=== PATIENT | female | born 1960 | race Caucasian/White ===

== ENCOUNTER 2016-08-08 16:23 | Emergency (ER) | payer MEDICAID ==
[~2016-08-08] VITALS: Ht 149.9 cm; Wt 63.5 kg
[~2016-08-08 16:23] MED LIST: DOC100C PO; Insulin Detemir SC; LEV500T PO; LIS5T PO; MET25T PO; Pantoprazole Sodium Sesquihydr PO; SACC250C PO
[2016-08-08] MEDS ORDERED: SODIUM CHLORIDE 0.9% 1,000 ML IV ONE (23:33)
[2016-08-08] MEDS ORDERED: ONDANSETRON HCL 4 MG/2 ML VIAL IV ONE (23:45)
[2016-08-08] MEDS ORDERED: MORPHINE SULFATE 4 MG/ML SYRG IV ONE (23:45)
[2016-08-09 00:01] LABS: Basophils # (auto) 0.1 uL; Basophils % (auto) 0.4 % (0.0-2.0); Eosinophils # (auto) 0 uL; Eosinophils % (auto) 0.1 % (0.0-7.0); Hematocrit 38.6 % (36.0-46.0); Hemoglobin 12.5 g/dL (12.2-16.2); Lymphocytes # (auto) 1.8 uL; Mean Corpuscular Hemoglobin 27.9 pg (28.0-32.0); Mean Corpuscular Hgb Conc. 32.3 g/dL (32.0-36.0); Mean Corpuscular Volume 86.4 fL (80.0-100.0); Mean Platelet Volume 8.8 fL (7.4-10.4); Monocytes # (auto) 1.2 uL; Monocytes % (auto) 7.3 % (0.0-12.0); Neutrophils # (auto) 13.1 uL; Neutrophils % (auto) 81.2 % (37.0-80.0); Platelet Count (auto) 451 10^3/uL (140-450); Red Cell Distribution Width 13.3 % (11.6-16.0); White Blood Cell 16.1 10^3/uL (4.4-10.8)
[2016-08-09 00:19] LABS: Albumin 2.1 g/dL (3.4-5.0); BUN/Creatinine Ratio 29.3; Calcium 8.2 mg/dL (8.5-10.1)
[2016-08-09 00:21] LABS: Bilirubin, Total 0.2 mg/dL (0.2-1.0); Total Protein 6.9 g/dL (6.4-8.2)
[2016-08-09 00:24] LABS: Potassium 2.8 mmol/L (3.5-5.1)
[2016-08-09] MEDS ORDERED: POTASSIUM CHL 20 Meq TABLET PO ONE (00:45)
[2016-08-09] MEDS ORDERED: ONDANSETRON HCL 4 MG/2 ML VIAL ONE (02:16)
[2016-08-09] MEDS ORDERED: ONDANSETRON HCL 4 MG/2 ML VIAL IV ONE (02:30)
[2016-08-09] MEDS ORDERED: InsuLIN REG 1unit/0.01ml Soln (100units/ml) SC ONE (02:30)
[2016-08-09] MEDS ORDERED: cefTRIAXone 1GM/50ML D5W 50 ML IV ONE (04:45)
[2016-08-09] MEDS ORDERED: metroNIDAZOLE 500MG/100ML 100 ML IV ONE (04:45)
[2016-08-09 05:40] LABS: Urine Bilirubin Negative (Negative); Urine Blood TRACE /uL (Negative); Urine Color Yellow (Yellow); Urine Hyaline Cast FEW /lpf (0 - 2); Urine Nitrite Negative (Negative); Urine RBC 13 /hpf (0 - 4); Urine Squamous Epithelial Cell FEW /hpf (<5); Urine Urobilinogen Normal (Negative); Urine pH 6.5 (5.0-8.0)
[2016-08-09 05:54] LABS: Urine Glucose 4+ mg/dL (Normal); Urine Ketone 3+ (Negative)
[2016-08-09 09:21] VITALS: BP 134/75
== END 2016-08-09 10:22 | disposition home or self-care (01) ==
LOC: EDBD 16:23 → ER 16:34
DX: N20.0 Calculus of kidney (principal); E11.9 Type 2 diabetes mellitus without complications; E87.6 Hypokalemia; D72.829 Elevated white blood cell count, unspecified; N18.9 Chronic kidney disease, unspecified; F17.210 Nicotine dependence, cigarettes, uncomplicated; Z86.73 Personal history of transient ischemic attack (TIA), and cerebral infarction without residual deficits; Z88.0 Allergy status to penicillin
CPT/HCPCS: 36415; 71010; 74176; 80053; 81001; 83605; 83690; 85025; 96361; 96365; 96366; 96368; 96375; 99285; G0434; J0696; J2270; J2405; J3490

== ENCOUNTER 2016-08-26 12:41 | Inpatient (IN) | payer MEDICAID ==
[~2016-08-26] VITALS: Ht 149.9 cm; Wt 52.6 kg
[2016-08-26] MEDS ORDERED: SODIUM CHLORIDE 0.9% 250 ML IV ONE (13:26)
[2016-08-26] MEDS ORDERED: SODIUM CHLORIDE 0.9% 1,000 ML IV ONE ×2 (13:26→14:54)
[2016-08-26] MEDS ORDERED: PROMETHAZINE HCL 25 MG/ML 1ML IV ONE (13:30)
[2016-08-26] MEDS ORDERED: MORPHINE SULFATE 4 MG/ML SYRG IV ONE (13:30)
[2016-08-26 13:58] LABS: Albumin 3.2 g/dL (3.4-5.0); BUN/Creatinine Ratio 21.2; Calcium 8.9 mg/dL (8.5-10.1)
[2016-08-26 14:00] LABS: Bilirubin, Total 0.4 mg/dL (0.2-1.0); Total Protein 7.6 g/dL (6.4-8.2)
[2016-08-26 14:28] LABS: Basophils # (auto) 0 uL; Basophils % (auto) 0.2 % (0.0-2.0); Eosinophils # (auto) 0 uL; Hematocrit 47.3 % (36.0-46.0); Hemoglobin 15.1 g/dL (12.2-16.2); Lymphocytes # (auto) 0.9 uL; Lymphocytes % (auto) 5.2 % (10.0-50.0); Mean Corpuscular Hgb Conc. 31.9 g/dL (32.0-36.0); Mean Corpuscular Volume 87.9 fL (80.0-100.0); Mean Platelet Volume 9.7 fL (7.4-10.4); Monocytes # (auto) 0.2 uL; Monocytes % (auto) 1.3 % (0.0-12.0); Neutrophils # (auto) 15.6 uL; Neutrophils % (auto) 93.3 % (37.0-80.0); Platelet Count (auto) 350 10^3/uL (140-450); Red Cell Distribution Width 14.5 % (11.6-16.0); White Blood Cell 16.7 10^3/uL (4.4-10.8)
[2016-08-26] MEDS ORDERED: VANCOMYCIN 1GM/250ML D5W 250 ML IV ONE (15:00)
[2016-08-26] MEDS ORDERED: InsuLIN REG 1unit/0.01ml Soln (100units/ml) IV ONE (15:00)
[2016-08-26] MEDS ORDERED: HYDROcodone-ACET 5/325MG TAB PO PRN (15:15)
[2016-08-26] MEDS ORDERED: PANTOPRAZOLE SODIUM 40 MG/10 ML VIAL IV ONE (15:15)
[2016-08-26] MEDS ORDERED: LISINOPRIL 10 MG TAB PO ONE (15:15)
[2016-08-26] MEDS ORDERED: DEXTROSE (50%) 50ML SYRG IV PRN (15:15)
[2016-08-26] MEDS: SODIUM CHLORIDE 0.9% 1,000 ML IV SCH (15:15)
[2016-08-26 15:37] LABS: Urine Bilirubin Negative (Negative); Urine Blood Negative /uL (Negative); Urine Color Yellow (Yellow); Urine Nitrite Negative (Negative); Urine RBC 3 /hpf (0 - 4); Urine Squamous Epithelial Cell FEW /hpf (<5); Urine Urobilinogen Normal (Negative); Urine pH 7.5 (5.0-8.0)
[2016-08-26 15:40] LABS: Urine Glucose 4+ mg/dL (Normal); Urine Ketone 2+ (Negative)
[2016-08-26] MEDS: ACCU-CHEK COMFORT CURVE STRIP VI SCH (17:46)
[2016-08-26] MEDS: InsuLIN REG 1unit/0.01ml Soln (100units/ml) SC SCH ×2 (17:48→23:50)
[2016-08-26] MEDS: ONDANSETRON HCL 4 MG/2 ML VIAL IV PRN (18:56)
[2016-08-26 20:00] VITALS: BP 109/65
[2016-08-26 21:41] VITALS: BP 109/65
[2016-08-27] VITALS (7 sets, daily range): BP systolic 144–184; BP diastolic 76–97
[2016-08-27] MEDS: SODIUM CHLORIDE 0.9% 1,000 ML IV SCH ×3 (00:02→21:15)
[2016-08-27] MEDS: ACCU-CHEK COMFORT CURVE STRIP VI SCH ×4 (00:02→18:03)
[2016-08-27] MEDS: ONDANSETRON HCL 4 MG/2 ML VIAL IV PRN ×2 (05:04→09:30)
[2016-08-27] MEDS: InsuLIN REG 1unit/0.01ml Soln (100units/ml) SC SCH ×3 (05:18→17:59)
[2016-08-27 08:54] LABS: Basophils # (auto) 0.1 uL; Basophils % (auto) 0.4 % (0.0-2.0); Eosinophils # (auto) 0 uL; Hematocrit 41.8 % (36.0-46.0); Hemoglobin 13.2 g/dL (12.2-16.2); Lymphocytes # (auto) 1.9 uL; Lymphocytes % (auto) 10.6 % (10.0-50.0); Mean Corpuscular Hemoglobin 27.6 pg (28.0-32.0); Mean Corpuscular Hgb Conc. 31.6 g/dL (32.0-36.0); Mean Corpuscular Volume 87.4 fL (80.0-100.0); Mean Platelet Volume 8.8 fL (7.4-10.4); Monocytes # (auto) 0.8 uL; Monocytes % (auto) 4.3 % (0.0-12.0); Neutrophils # (auto) 14.9 uL; Neutrophils % (auto) 84.7 % (37.0-80.0); Platelet Count (auto) 335 10^3/uL (140-450); Red Cell Distribution Width 14.1 % (11.6-16.0); White Blood Cell 17.6 10^3/uL (4.4-10.8)
[2016-08-27 09:04] LABS: INR 0.95 (0.9-1.15); Partial Thromboplastin Time 26.3 sec (22.64-33.71); Prothrombin Time 9.8 sec (9.37-12.3)
[2016-08-27 09:20] LABS: Albumin 2.5 g/dL (3.4-5.0); BUN/Creatinine Ratio 26.9; Bilirubin, Total 0.3 mg/dL (0.2-1.0); Calcium 8.4 mg/dL (8.5-10.1); Potassium 4.1 mmol/L (3.5-5.1); Total Protein 6.3 g/dL (6.4-8.2)
[2016-08-27] MEDS: LISINOPRIL 10 MG TAB PO SCH (09:30)
[2016-08-27] MEDS: PANTOPRAZOLE SODIUM 40 MG/10 ML VIAL IV SCH (09:30)
[2016-08-27] MEDS: MORPHINE SULF INJ 2 MG/ML SYRINGE 1ML IV PRN ×3 (11:25→20:49)
[2016-08-27] MEDS: PROMETHAZINE HCL 25 MG/ML 1ML IV PRN ×3 (11:25→20:48)
[2016-08-27] MEDS ORDERED: LEVOFLOXACIN 500MG 100 ML IV ONE (14:15)
[2016-08-27] MEDS: Boost Glucose Control 8 Ounces PO SCH ×2 (17:57→21:58)
[2016-08-28] VITALS (7 sets, daily range): BP systolic 125–178; BP diastolic 64–112
[2016-08-28] MEDS: ACCU-CHEK COMFORT CURVE STRIP VI SCH ×4 (00:18→17:25)
[2016-08-28] MEDS: InsuLIN REG 1unit/0.01ml Soln (100units/ml) SC SCH ×4 (00:22→17:25)
[2016-08-28] MEDS: PROMETHAZINE HCL 25 MG/ML 1ML IV PRN ×4 (00:38→22:32)
[2016-08-28] MEDS: MORPHINE SULF INJ 2 MG/ML SYRINGE 1ML IV PRN ×5 (00:38→22:40)
[2016-08-28] MEDS: SODIUM CHLORIDE 0.9% 1,000 ML IV SCH ×2 (00:54→16:56)
[2016-08-28] MEDS: Boost Glucose Control 8 Ounces PO SCH ×4 (05:16→22:00)
[2016-08-28] MEDS: LEVOFLOXACIN 500MG 100 ML IV SCH (09:53)
[2016-08-28] MEDS: PANTOPRAZOLE SODIUM 40 MG/10 ML VIAL IV SCH (09:55)
[2016-08-28] MEDS: LISINOPRIL 10 MG TAB PO SCH (09:56)
[2016-08-28] MEDS ORDERED: VANCOMYCIN PER PHARMACY 0 MG IV SCH (11:00)
[2016-08-28] MEDS: VANCOMYCIN 1GM/250ML D5W 250 ML IV SCH (12:47)
[2016-08-28] MEDS: ONDANSETRON HCL 4 MG/2 ML VIAL IV PRN (17:19)
[2016-08-29] VITALS (8 sets, daily range): BP systolic 114–160; BP diastolic 82–106
[2016-08-29] MEDS: InsuLIN REG 1unit/0.01ml Soln (100units/ml) SC SCH ×5 (00:59→23:52)
[2016-08-29] MEDS: SODIUM CHLORIDE 0.9% 1,000 ML IV SCH ×3 (03:15→23:15)
[2016-08-29] MEDS: ONDANSETRON HCL 4 MG/2 ML VIAL IV PRN ×4 (04:02→23:15)
[2016-08-29] MEDS: MORPHINE SULF INJ 2 MG/ML SYRINGE 1ML IV PRN ×5 (04:02→23:15)
[2016-08-29] MEDS: Boost Glucose Control 8 Ounces PO SCH ×4 (06:00→21:41)
[2016-08-29] MEDS: ACCU-CHEK COMFORT CURVE STRIP VI SCH ×5 (06:09→23:52)
[2016-08-29 06:36] LABS: Basophils # (auto) 0 uL; Basophils % (auto) 0.6 % (0.0-2.0); Eosinophils # (auto) 0 uL; Eosinophils % (auto) 0.4 % (0.0-7.0); Hematocrit 40.8 % (36.0-46.0); Hemoglobin 12.9 g/dL (12.2-16.2); Lymphocytes # (auto) 1.6 uL; Lymphocytes % (auto) 24.1 % (10.0-50.0); Mean Corpuscular Hemoglobin 27.5 pg (28.0-32.0); Mean Corpuscular Hgb Conc. 31.6 g/dL (32.0-36.0); Mean Corpuscular Volume 87.2 fL (80.0-100.0); Mean Platelet Volume 8.9 fL (7.4-10.4); Monocytes # (auto) 0.7 uL; Monocytes % (auto) 10.4 % (0.0-12.0); Neutrophils # (auto) 4.4 uL; Neutrophils % (auto) 64.5 % (37.0-80.0); Platelet Count (auto) 247 10^3/uL (140-450); Red Cell Distribution Width 14.1 % (11.6-16.0); White Blood Cell 6.8 10^3/uL (4.4-10.8)
[2016-08-29 06:46] LABS: INR 0.96 (0.9-1.15); Prothrombin Time 9.9 sec (9.37-12.3)
[2016-08-29 06:50] LABS: BUN/Creatinine Ratio 17.8; Calcium 8.2 mg/dL (8.5-10.1); Magnesium 1.9 mg/dL (1.6-2.6); Potassium 3.4 mmol/L (3.5-5.1)
[2016-08-29] MEDS: PROMETHAZINE HCL 25 MG/ML 1ML IV PRN ×2 (08:18→13:37)
[2016-08-29] MEDS: LISINOPRIL 10 MG TAB PO SCH (10:48)
[2016-08-29] MEDS: LEVOFLOXACIN 500MG 100 ML IV SCH (10:49)
[2016-08-29] MEDS: PANTOPRAZOLE SODIUM 40 MG/10 ML VIAL IV SCH (10:49)
[2016-08-29] MEDS: VANCOMYCIN 1GM/250ML D5W 250 ML IV SCH (13:37)
[2016-08-30] VITALS (7 sets, daily range): BP systolic 126–176; BP diastolic 64–99
[2016-08-30] MEDS: Boost Glucose Control 8 Ounces PO SCH ×4 (05:51→22:00)
[2016-08-30] MEDS: ACCU-CHEK COMFORT CURVE STRIP VI SCH ×4 (05:51→23:45)
[2016-08-30] MEDS: InsuLIN REG 1unit/0.01ml Soln (100units/ml) SC SCH ×4 (05:52→23:43)
[2016-08-30 06:07] LABS: Basophils # (auto) 0 uL; Basophils % (auto) 0.5 % (0.0-2.0); Eosinophils # (auto) 0.1 uL; Eosinophils % (auto) 1.2 % (0.0-7.0); Hematocrit 38.5 % (36.0-46.0); Hemoglobin 12.1 g/dL (12.2-16.2); Lymphocytes # (auto) 1.8 uL; Lymphocytes % (auto) 31.1 % (10.0-50.0); Mean Corpuscular Hemoglobin 27.6 pg (28.0-32.0); Mean Corpuscular Hgb Conc. 31.4 g/dL (32.0-36.0); Mean Corpuscular Volume 87.9 fL (80.0-100.0); Mean Platelet Volume 9.2 fL (7.4-10.4); Monocytes # (auto) 0.8 uL; Monocytes % (auto) 13.3 % (0.0-12.0); Neutrophils # (auto) 3.2 uL; Neutrophils % (auto) 53.9 % (37.0-80.0); Platelet Count (auto) 207 10^3/uL (140-450); Red Cell Distribution Width 13.9 % (11.6-16.0); White Blood Cell 5.9 10^3/uL (4.4-10.8)
[2016-08-30 06:20] LABS: INR 1.03 (0.9-1.15); Prothrombin Time 10.6 sec (9.37-12.3)
[2016-08-30 06:28] LABS: BUN/Creatinine Ratio 18.4; Calcium 7.8 mg/dL (8.5-10.1); Magnesium 1.8 mg/dL (1.6-2.6)
[2016-08-30 06:37] LABS: Potassium 2.9 mmol/L (3.5-5.1)
[2016-08-30] MEDS: ONDANSETRON HCL 4 MG/2 ML VIAL IV PRN ×2 (08:40→15:32)
[2016-08-30] MEDS: MORPHINE SULF INJ 2 MG/ML SYRINGE 1ML IV PRN ×3 (08:41→20:25)
[2016-08-30] MEDS: SODIUM CHLORIDE 0.9% 1,000 ML IV SCH ×2 (09:15→12:15)
[2016-08-30] MEDS: PANTOPRAZOLE SODIUM 40 MG/10 ML VIAL IV SCH (10:07)
[2016-08-30] MEDS: LEVOFLOXACIN 500MG 100 ML IV SCH (10:07)
[2016-08-30] MEDS ORDERED: POTASSIUM CHL 20 Meq TABLET PO ONE ×2 (10:30→15:30)
[2016-08-30] MEDS: LISINOPRIL 10 MG TAB PO SCH (10:31)
[2016-08-30] MEDS: PROMETHAZINE HCL 25 MG/ML 1ML IV PRN ×2 (10:31→20:17)
[2016-08-30] MEDS ORDERED: MAGNESIUM SULFATE 1GM/100ML 100 ML IV ONE (12:15)
[2016-08-30] MEDS ORDERED: LISINOPRIL 10 MG TAB PO ONE (12:30)
[2016-08-30] MEDS: ENALAPRILAT 1.25 MG/ML-1ML VIAL IV PRN (16:45)
[2016-08-31] VITALS (7 sets, daily range): BP systolic 135–152; BP diastolic 60–98
[2016-08-31] MEDS: ENALAPRILAT 1.25 MG/ML-1ML VIAL IV PRN (04:32)
[2016-08-31] MEDS: ONDANSETRON HCL 4 MG/2 ML VIAL IV PRN ×3 (04:33→18:09)
[2016-08-31] MEDS: MORPHINE SULF INJ 2 MG/ML SYRINGE 1ML IV PRN ×5 (04:33→22:36)
[2016-08-31] MEDS: Boost Glucose Control 8 Ounces PO SCH ×4 (06:00→22:00)
[2016-08-31] MEDS: InsuLIN REG 1unit/0.01ml Soln (100units/ml) SC SCH ×3 (06:00→18:03)
[2016-08-31] MEDS: ACCU-CHEK COMFORT CURVE STRIP VI SCH ×3 (06:00→18:01)
[2016-08-31 06:19] LABS: Basophils # (auto) 0 uL; Basophils % (auto) 0.6 % (0.0-2.0); Eosinophils # (auto) 0.1 uL; Eosinophils % (auto) 0.9 % (0.0-7.0); Hematocrit 43.3 % (36.0-46.0); Hemoglobin 13.9 g/dL (12.2-16.2); Lymphocytes # (auto) 1.3 uL; Mean Corpuscular Hemoglobin 27.9 pg (28.0-32.0); Mean Corpuscular Hgb Conc. 32.1 g/dL (32.0-36.0); Mean Platelet Volume 9.4 fL (7.4-10.4); Monocytes # (auto) 0.8 uL; Monocytes % (auto) 13.2 % (0.0-12.0); Neutrophils # (auto) 3.7 uL; Neutrophils % (auto) 63.3 % (37.0-80.0); Platelet Count (auto) 233 10^3/uL (140-450); Red Cell Distribution Width 13.8 % (11.6-16.0); White Blood Cell 5.8 10^3/uL (4.4-10.8)
[2016-08-31 06:57] LABS: BUN/Creatinine Ratio 20.5; Calcium 8.2 mg/dL (8.5-10.1); Potassium 4.2 mmol/L (3.5-5.1)
[2016-08-31] MEDS: PROMETHAZINE HCL 25 MG/ML 1ML IV PRN (07:53)
[2016-08-31] MEDS: SODIUM CHLORIDE 0.9% 1,000 ML IV SCH (07:59)
[2016-08-31] MEDS: LISINOPRIL 20 MG TAB PO SCH (09:20)
[2016-08-31] MEDS: PANTOPRAZOLE SODIUM 40 MG/10 ML VIAL IV SCH (09:20)
[2016-08-31] MEDS: LACTULOSE 20Gm/30ML SOLN PO PRN ×2 (09:27→18:20)
[2016-08-31] MEDS: DOCUSATE SOD 100 MG CAP PO SCH ×2 (09:34→22:00)
[2016-08-31] MEDS: METOCLOPRAMIDE HCL 5MG/ml INJ 2ml VIAL IV SCH ×2 (14:03→22:21)
[2016-09-01] MEDS: InsuLIN REG 1unit/0.01ml Soln (100units/ml) SC SCH ×5 (00:58→23:59)
[2016-09-01] MEDS: SODIUM CHLORIDE 0.9% 1,000 ML IV SCH (04:15)
[2016-09-01 05:00] VITALS: BP 112/65
[2016-09-01] MEDS: METOCLOPRAMIDE HCL 5MG/ml INJ 2ml VIAL IV SCH ×3 (05:56→23:53)
[2016-09-01] MEDS: Boost Glucose Control 8 Ounces PO SCH ×4 (05:58→22:00)
[2016-09-01] MEDS: ACCU-CHEK COMFORT CURVE STRIP VI SCH ×5 (06:25→23:53)
[2016-09-01 07:50] VITALS: BP 110/56
[2016-09-01 09:12] VITALS: BP 110/56
[2016-09-01] MEDS: DOCUSATE SOD 100 MG CAP PO SCH ×2 (10:00→22:00)
[2016-09-01] MEDS: PANTOPRAZOLE SODIUM 40 MG/10 ML VIAL IV SCH (10:53)
[2016-09-01] MEDS: LISINOPRIL 20 MG TAB PO SCH (10:53)
[2016-09-01] MEDS: MORPHINE SULF INJ 2 MG/ML SYRINGE 1ML IV PRN ×3 (10:55→20:57)
[2016-09-01 12:00] VITALS: BP 112/60
[2016-09-01 17:00] VITALS: BP 145/95
[2016-09-01] MEDS: metFORMIN HYDROCHLORIDE 500 MG TAB PO SCH (18:26)
[2016-09-01] MEDS: ONDANSETRON HCL 4 MG/2 ML VIAL IV PRN (20:03)
[2016-09-01 22:00] VITALS: BP 137/71
[2016-09-02 05:00] VITALS: BP 107/62
[2016-09-02] MEDS: InsuLIN REG 1unit/0.01ml Soln (100units/ml) SC SCH (05:37)
[2016-09-02] MEDS: ACCU-CHEK COMFORT CURVE STRIP VI SCH (05:37)
[2016-09-02] MEDS: METOCLOPRAMIDE HCL 5MG/ml INJ 2ml VIAL IV SCH ×2 (05:37→11:27)
[2016-09-02] MEDS: Boost Glucose Control 8 Ounces PO SCH (05:37)
[2016-09-02] MEDS: MORPHINE SULF INJ 2 MG/ML SYRINGE 1ML IV PRN (05:38)
[2016-09-02] MEDS: metFORMIN HYDROCHLORIDE 500 MG TAB PO SCH (06:35)
[2016-09-02 07:10] LABS: BUN/Creatinine Ratio 19.6; Calcium 7.9 mg/dL (8.5-10.1); Potassium 3.5 mmol/L (3.5-5.1)
[2016-09-02 07:45] VITALS: BP 152/86
[2016-09-02 09:00] VITALS: BP 142/75
[2016-09-02] MEDS: DOCUSATE SOD 100 MG CAP PO SCH (10:00)
[2016-09-02] MEDS: PANTOPRAZOLE SODIUM 40 MG/10 ML VIAL IV SCH (10:04)
[2016-09-02] MEDS: LISINOPRIL 20 MG TAB PO SCH (10:05)
[2016-09-02] MEDS ORDERED: METF500T PO (10:19)
[2016-09-02] MEDS ORDERED: METO-281 PO (10:19)
[2016-09-02] MEDS ORDERED: LISI-646 PO (10:19)
[2016-09-02] MEDS ORDERED: PANT40TA2 PO (11:44)
[2016-09-02 12:00] VITALS: BP 127/67
== END 2016-09-02 13:00 | disposition home health service (06) | DRG 48 ==
LOC: EDUNIT# 12:41 → ER 12:44 → OVERFLOW 12:45 → EAST 16:41 → CENTRAL 17:22
PROVIDERS: ADMIT Internal Medicine; ATTEND Internal Medicine
DX: E11.43 Type 2 diabetes mellitus with diabetic autonomic (poly)neuropathy (principal); E43 Unspecified severe protein-calorie malnutrition; I31.3 Pericardial effusion (noninflammatory); R65.10 Systemic inflammatory response syndrome (SIRS) of non-infectious origin without acute organ dysfunction; N39.0 Urinary tract infection, site not specified; E11.65 Type 2 diabetes mellitus with hyperglycemia; E86.0 Dehydration; K31.84 Gastroparesis; N81.10 Cystocele, unspecified; E87.6 Hypokalemia; N20.0 Calculus of kidney; I10 Essential (primary) hypertension; F17.210 Nicotine dependence, cigarettes, uncomplicated; D72.825 Bandemia; N32.89 Other specified disorders of bladder; I70.8 Atherosclerosis of other arteries; R32 Unspecified urinary incontinence; K44.9 Diaphragmatic hernia without obstruction or gangrene; Z87.442 Personal history of urinary calculi; Z86.73 Personal history of transient ischemic attack (TIA), and cerebral infarction without residual deficits; Z88.0 Allergy status to penicillin; Z91.14 Patient's other noncompliance with medication regimen; Z98.890 Other specified postprocedural states
CPT/HCPCS: 36415; 71010; 74176; 80048; 80053; 80061; 81001; 82962; 83036; 83605; 83690; 83735; 84132; 85025; 85610; 85730; 87040; 87086; 93005; 94761; 96361; 96365; 96375; C9113; J1815; J1956; J2405

== ENCOUNTER 2016-09-27 05:23 | Inpatient (IN) | payer MEDICAID ==
[~2016-09-27] VITALS: Ht 149.9 cm; Wt 58.2 kg
[~2016-09-27 05:23] MED LIST changes: -DOC100C PO; -Insulin Detemir SC; -LEV500T PO; -LIS5T PO; +LISI-646 PO; -MET25T PO; +METF500T PO; +METO-281 PO; +PANT40TA2 PO; -Pantoprazole Sodium Sesquihydr PO; -SACC250C PO; +SODIUM BICARBONATE 8.4% INJ 50ML SYRINGE IV ONE
[2016-09-27] MEDS ORDERED: SODIUM CHLORIDE 0.9% 1,000 ML IV ONE (07:51)
[2016-09-27 07:54] LABS: Basophils # (auto) 0.1 uL; Basophils % (auto) 0.7 % (0.0-2.0); Eosinophils # (auto) 0.2 uL; Eosinophils % (auto) 2.4 % (0.0-7.0); Hematocrit 35.9 % (36.0-46.0); Hemoglobin 11.8 g/dL (12.2-16.2); Lymphocytes # (auto) 1.5 uL; Mean Corpuscular Hemoglobin 28.6 pg (28.0-32.0); Mean Corpuscular Hgb Conc. 32.7 g/dL (32.0-36.0); Mean Corpuscular Volume 87.4 fL (80.0-100.0); Mean Platelet Volume 8.9 fL (7.4-10.4); Monocytes # (auto) 0.7 uL; Monocytes % (auto) 8.9 % (0.0-12.0); Neutrophils # (auto) 5.4 uL; Platelet Count (auto) 360 10^3/uL (140-450); Red Cell Distribution Width 14.8 % (11.6-16.0); White Blood Cell 7.9 10^3/uL (4.4-10.8)
[2016-09-27 08:18] LABS: Albumin 2.9 g/dL (3.4-5.0); Bilirubin, Total 0.2 mg/dL (0.2-1.0); Calcium 8.7 mg/dL (8.5-10.1); Potassium 3.9 mmol/L (3.5-5.1); Total Protein 6.8 g/dL (6.4-8.2)
[2016-09-27 08:30] LABS: Magnesium 1.9 mg/dL (1.6-2.6)
[2016-09-27 09:56] LABS: Urine RBC None Seen /hpf (0 - 4)
[2016-09-27 10:12] LABS: Urine Bilirubin Negative (Negative); Urine Blood Negative /uL (Negative); Urine Color Yellow (Yellow); Urine Glucose 4+ mg/dL (Normal); Urine Ketone Negative (Negative); Urine Nitrite Negative (Negative); Urine Squamous Epithelial Cell FEW /hpf (<5); Urine Urobilinogen Normal (Negative)
[2016-09-27] MEDS ORDERED: cefTRIAXone 1GM/50ML D5W 50 ML IV ONE (13:00)
[2016-09-27] MEDS ORDERED: DEXTROSE (50%) 50ML SYRG IV PRN (14:00)
[2016-09-27] MEDS ORDERED: ACETAMINOPHEN 500 MG TAB PO PRN (14:00)
[2016-09-27] MEDS ORDERED: MORPHINE SULF INJ 2 MG/ML SYRINGE 1ML IV PRN (14:00)
[2016-09-27] MEDS ORDERED: ASPirin 81 mg TAB PO ONE (14:00)
[2016-09-27] MEDS: SODIUM CHLORIDE 0.9% 1,000 ML IV SCH (14:00)
[2016-09-27] MEDS ORDERED: TEMAZEPAM 15 MG CAP PO PRN (14:00)
[2016-09-27] MEDS ORDERED: NITROGLYCERIN 0.4 MG SL TAB SL PRN (14:00)
[2016-09-27] MEDS ORDERED: LACTULOSE 20Gm/30ML SOLN PO PRN (14:00)
[2016-09-27] MEDS: ENOXAPARIN SOD 40 MG/0.4 ML SYRINGE SC SCH (14:30)
[2016-09-27 14:40] LABS: Cholesterol 332 mg/dL (<200); HDL Cholesterol 60 mg/dL (40-59); LDL Cholesterol 223 mg/dL (<100); Triglycerides 305 mg/dL (<150)
[2016-09-27] MEDS: ACCU-CHEK COMFORT CURVE STRIP VI SCH ×2 (16:12→19:40)
[2016-09-27] MEDS: InsuLIN REG 1unit/0.01ml Soln (100units/ml) SC SCH ×2 (16:13→19:51)
[2016-09-27 16:15] VITALS: BP 148/90
[2016-09-27] MEDS ORDERED: INFLUENZA QUAD 2016-2017 0.5 ML SYRG IM ONE (16:36)
[2016-09-27] MEDS ORDERED: PNEUMOCOCCAL VACC POLYS 25 MCG/0.5 ML VIAL IM ONE (17:30)
[2016-09-27] MEDS: HYDROcodone-ACET 5/325MG TAB PO PRN (19:37)
[2016-09-27 20:00] VITALS: BP 136/91
[2016-09-27 21:21] VITALS: BP 129/69
[2016-09-27] MEDS: LORazepam 0.5 MG TAB PO PRN (21:31)
[2016-09-27] MEDS: ATORVASTATIN 20 MG TAB PO SCH (22:46)
[2016-09-28] VITALS (7 sets, daily range): BP systolic 93–164; BP diastolic 55–97
[2016-09-28] MEDS: SODIUM CHLORIDE 0.9% 1,000 ML IV SCH ×2 (00:25→09:24)
[2016-09-28] MEDS: ACCU-CHEK COMFORT CURVE STRIP VI SCH ×6 (00:25→22:21)
[2016-09-28] MEDS: InsuLIN REG 1unit/0.01ml Soln (100units/ml) SC SCH ×6 (04:19→20:00)
[2016-09-28] MEDS: HYDROcodone-ACET 5/325MG TAB PO PRN (05:16)
[2016-09-28 06:00] LABS: Basophils # (auto) 0 uL; Basophils % (auto) 0.6 % (0.0-2.0); Eosinophils # (auto) 0.2 uL; Eosinophils % (auto) 2.8 % (0.0-7.0); Hematocrit 33.3 % (36.0-46.0); Hemoglobin 11.1 g/dL (12.2-16.2); Lymphocytes # (auto) 1.9 uL; Lymphocytes % (auto) 24.1 % (10.0-50.0); Mean Corpuscular Hgb Conc. 33.2 g/dL (32.0-36.0); Mean Corpuscular Volume 87.5 fL (80.0-100.0); Mean Platelet Volume 8.9 fL (7.4-10.4); Monocytes # (auto) 1.1 uL; Monocytes % (auto) 14.5 % (0.0-12.0); Neutrophils # (auto) 4.5 uL; Platelet Count (auto) 345 10^3/uL (140-450); Red Cell Distribution Width 15.1 % (11.6-16.0); White Blood Cell 7.8 10^3/uL (4.4-10.8)
[2016-09-28 06:25] LABS: Albumin 2.5 g/dL (3.4-5.0); BUN/Creatinine Ratio 36.2; Bilirubin, Total 0.2 mg/dL (0.2-1.0); Calcium 8.1 mg/dL (8.5-10.1); Total Protein 6.2 g/dL (6.4-8.2)
[2016-09-28] MEDS: cefTRIAXone 1GM/50ML D5W 50 ML IV SCH (09:23)
[2016-09-28] MEDS: ASPirin 81 mg TAB PO SCH (09:23)
[2016-09-28] MEDS: ENOXAPARIN SOD 40 MG/0.4 ML SYRINGE SC SCH (09:23)
[2016-09-28] MEDS: MORPHINE SULF INJ 2 MG/ML SYRINGE 1ML IV PRN (10:16)
[2016-09-28] MEDS: LORazepam 0.5 MG TAB PO PRN (10:17)
[2016-09-28] MEDS ORDERED: LORazepam 2MG/ML-1ML VIAL IV ONE (11:30)
[2016-09-28] MEDS ORDERED: PANTOPRAZOLE 40 MG TAB PO SCH (11:45)
[2016-09-28] MEDS: PROMETHAZINE HCL 25 MG/ML 1ML IV PRN (16:49)
[2016-09-28] MEDS: ATORVASTATIN 20 MG TAB PO SCH (22:21)
[2016-09-29] VITALS (68 sets, daily range): BP systolic 83–181; BP diastolic 54–101
[2016-09-29] MEDS: ACCU-CHEK COMFORT CURVE STRIP VI SCH ×6 (00:17→20:00)
[2016-09-29] MEDS: InsuLIN REG 1unit/0.01ml Soln (100units/ml) SC SCH ×6 (04:35→20:00)
[2016-09-29 06:29] LABS: Basophils # (auto) 0 uL; Basophils % (auto) 0.5 % (0.0-2.0); Eosinophils # (auto) 0.2 uL; Eosinophils % (auto) 2.1 % (0.0-7.0); Hematocrit 34.7 % (36.0-46.0); Hemoglobin 11.4 g/dL (12.2-16.2); Lymphocytes # (auto) 1.5 uL; Lymphocytes % (auto) 19.5 % (10.0-50.0); Mean Corpuscular Hemoglobin 28.8 pg (28.0-32.0); Mean Corpuscular Hgb Conc. 32.8 g/dL (32.0-36.0); Mean Corpuscular Volume 87.7 fL (80.0-100.0); Mean Platelet Volume 8.8 fL (7.4-10.4); Monocytes # (auto) 0.9 uL; Monocytes % (auto) 11.9 % (0.0-12.0); Platelet Count (auto) 345 10^3/uL (140-450); Red Cell Distribution Width 15.1 % (11.6-16.0); White Blood Cell 7.6 10^3/uL (4.4-10.8)
[2016-09-29 06:51] LABS: Potassium 3.7 mmol/L (3.5-5.1)
[2016-09-29 06:56] LABS: BUN/Creatinine Ratio 41.3; Calcium 8.2 mg/dL (8.5-10.1)
[2016-09-29] MEDS ORDERED: PROPOFOL 100 ML IV ONE (08:47)
[2016-09-29] MEDS: PROPOFOL 100 ML IV SCH (08:47)
[2016-09-29] MEDS ORDERED: CLINDAMYCIN 600MG IV 50 ML IV SCH (10:00)
[2016-09-29] MEDS ORDERED: MIDAZOLAM DRIP 100 mg/100mL NS 100 ML IV ONE (11:22)
[2016-09-29 11:41] LABS: Temperature: 24.3 C (20.0-25.0)
[2016-09-29] MEDS: cefTRIAXone 1GM/50ML D5W 50 ML IV SCH (12:04)
[2016-09-29] MEDS: ASPirin 81 mg TAB PO SCH (12:04)
[2016-09-29] MEDS: ENOXAPARIN SOD 40 MG/0.4 ML SYRINGE SC SCH (12:04)
[2016-09-29] MEDS: MIDAZOLAM DRIP 100 mg/100mL NS 100 ML IV SCH ×2 (12:06→16:35)
[2016-09-29] MEDS ORDERED: IPRATROPIUM BROM 0.5 MG/2.5ML INH SOL NEB PRN (17:45)
[2016-09-29] MEDS ORDERED: ALBUTEROL SULF 2.5 MG/0.5ML(0.5%) NEB SOLN NEB PRN (17:45)
[2016-09-29 18:03] LABS: Basophils # (auto) 0 uL; Basophils % (auto) 0.3 % (0.0-2.0); Eosinophils # (auto) 0 uL; Eosinophils % (auto) 0.1 % (0.0-7.0); Hematocrit 33.2 % (36.0-46.0); Hemoglobin 11.1 g/dL (12.2-16.2); Lymphocytes # (auto) 1.3 uL; Lymphocytes % (auto) 12.5 % (10.0-50.0); Mean Corpuscular Hemoglobin 28.7 pg (28.0-32.0); Mean Corpuscular Hgb Conc. 33.5 g/dL (32.0-36.0); Mean Corpuscular Volume 85.7 fL (80.0-100.0); Mean Platelet Volume 8.7 fL (7.4-10.4); Monocytes # (auto) 1.2 uL; Monocytes % (auto) 11.8 % (0.0-12.0); Neutrophils # (auto) 7.7 uL; Neutrophils % (auto) 75.3 % (37.0-80.0); Platelet Count (auto) 381 10^3/uL (140-450); White Blood Cell 10.3 10^3/uL (4.4-10.8)
[2016-09-29 18:24] LABS: Partial Thromboplastin Time 29.5 sec (22.64-33.71); Prothrombin Time 10.3 sec (9.37-12.3)
[2016-09-29 18:25] LABS: Albumin 2.5 g/dL (3.4-5.0); BUN/Creatinine Ratio 41.8; Bilirubin, Direct 0.1 mg/dL (0-0.2); Bilirubin, Total 0.2 mg/dL (0.2-1.0); Calcium 8.4 mg/dL (8.5-10.1); Magnesium 2.1 mg/dL (1.6-2.6); Potassium 3.6 mmol/L (3.5-5.1); Total Protein 6.3 g/dL (6.4-8.2)
[2016-09-29] MEDS: fentaNYL Drip 2500mCg/250mlNS 250 ML IV SCH (18:51)
[2016-09-29] MEDS: LEVOFLOXACIN 500MG 100 ML IV SCH (19:20)
[2016-09-29] MEDS ORDERED: SODIUM CHLORIDE 0.9% 1,000 ML IV ONE (21:15)
[2016-09-29] MEDS: SODIUM CHLORIDE 0.9% 1,000 ML IV SCH (21:30)
[2016-09-29] MEDS: ATORVASTATIN 20 MG TAB PO SCH (22:00)
[2016-09-30] VITALS (101 sets, daily range): BP systolic 76–175; BP diastolic 46–90
[2016-09-30] MEDS: ACCU-CHEK COMFORT CURVE STRIP VI SCH ×6 (00:07→20:00)
[2016-09-30] MEDS: methylPREDNISolone SOD SUCC 40 MG/ML VL IV SCH ×4 (00:16→22:00)
[2016-09-30] MEDS: NOREPINEPHRINE BITARTRATE 250 ML IV SCH ×2 (01:51→21:15)
[2016-09-30 03:50] LABS: Basophils # (auto) 0.1 uL; Basophils % (auto) 0.6 % (0.0-2.0); DEFINITIVE VIEW TRANSMISSION; Eosinophils # (auto) 0.1 uL; Eosinophils % (auto) 0.5 % (0.0-7.0); Hematocrit 31.7 % (36.0-46.0); Hemoglobin 10.4 g/dL (12.2-16.2); Lymphocytes # (auto) 1.5 uL; Lymphocytes % (auto) 12.6 % (10.0-50.0); Mean Corpuscular Hemoglobin 29.3 pg (28.0-32.0); Mean Corpuscular Volume 88.8 fL (80.0-100.0); Mean Platelet Volume 8.9 fL (7.4-10.4); Monocytes % (auto) 16.8 % (0.0-12.0); Neutrophils # (auto) 8.5 uL; Neutrophils % (auto) 69.5 % (37.0-80.0); Platelet Count (auto) 344 10^3/uL (140-450); Red Cell Distribution Width 15.3 % (11.6-16.0); White Blood Cell 12.2 10^3/uL (4.4-10.8)
[2016-09-30] MEDS: InsuLIN REG 1unit/0.01ml Soln (100units/ml) SC SCH ×6 (04:00→20:34)
[2016-09-30 04:12] LABS: INR 1.01 (0.9-1.15); Partial Thromboplastin Time 28.3 sec (22.64-33.71); Prothrombin Time 10.4 sec (9.37-12.3)
[2016-09-30 04:17] LABS: Albumin 2.3 g/dL (3.4-5.0); Alkaline Phosphatase 119 U/L (45-117); Anion Gap 13 (5-15); Aspartate Aminotransferase 15 U/L (15-37); BUN/Creatinine Ratio 32.9; Bilirubin, Direct < 0.1 mg/dL (0-0.2); Bilirubin, Total 0.3 mg/dL (0.2-1.0); Blood Urea Nitrogen 27 mg/dL (7-18); Carbon Dioxide 21 mmol/L (21-32); Chloride 114 mmol/L (98-107); GFR African American 93 mL/min; GFR Non-African American 77 mL/min; Glucose 162 mg/dL (74-106); Magnesium 1.9 mg/dL (1.6-2.6); Potassium 3.8 mmol/L (3.5-5.1); Sodium 148 mmol/L (136-145); Total Protein 5.9 g/dL (6.4-8.2)
[2016-09-30] MEDS: SODIUM CHLORIDE 0.9% 1,000 ML IV SCH (06:55)
[2016-09-30] MEDS ORDERED: LIDOCAINE 1% HCL (LOCAL ANESTH.) INJ 20ML MDV ID ONE (08:45)
[2016-09-30] MEDS ORDERED: IOHEXOL 350 MG/ML 100ML IJ ONE (10:15)
[2016-09-30] MEDS: PROPOFOL 100 ML IV SCH (11:05)
[2016-09-30] MEDS: LEVOFLOXACIN 500MG 100 ML IV SCH (11:30)
[2016-09-30] MEDS: SODIUM CHLOR 0.9% PF (SALINE LOCK) 10ML VIAL IV SCH ×2 (11:30→22:00)
[2016-09-30] MEDS: ASPirin 81 mg TAB PO SCH (11:30)
[2016-09-30] MEDS: ENOXAPARIN SOD 40 MG/0.4 ML SYRINGE SC SCH (11:30)
[2016-09-30] MEDS: SOD CHL 0.45% 1,000 ML IV SCH ×2 (14:32→22:30)
[2016-09-30] MEDS: FREE WATER GT SCH ×3 (14:32→22:00)
[2016-09-30] MEDS: fentaNYL Drip 2500mCg/250mlNS 250 ML IV SCH (17:08)
[2016-09-30] MEDS: ATORVASTATIN 20 MG TAB PO SCH (22:00)
[2016-10-01] VITALS (108 sets, daily range): BP systolic 107–179; BP diastolic 60–92
[2016-10-01] MEDS: fentaNYL Drip 2500mCg/250mlNS 250 ML IV SCH ×2 (01:16→16:11)
[2016-10-01] MEDS: FREE WATER GT SCH ×3 (01:25→09:21)
[2016-10-01 03:53] LABS: Basophils # (auto) 0 uL; Basophils % (auto) 0.3 % (0.0-2.0); Eosinophils # (auto) 0 uL; Hematocrit 29.3 % (36.0-46.0); Hemoglobin 9.7 g/dL (12.2-16.2); Lymphocytes # (auto) 0.8 uL; Lymphocytes % (auto) 6.4 % (10.0-50.0); Mean Corpuscular Hemoglobin 28.9 pg (28.0-32.0); Mean Corpuscular Hgb Conc. 33.2 g/dL (32.0-36.0); Mean Corpuscular Volume 86.9 fL (80.0-100.0); Mean Platelet Volume 9.5 fL (7.4-10.4); Monocytes # (auto) 0.9 uL; Monocytes % (auto) 7.5 % (0.0-12.0); Neutrophils # (auto) 10.1 uL; Neutrophils % (auto) 85.8 % (37.0-80.0); Platelet Count (auto) 269 10^3/uL (140-450); Red Cell Distribution Width 15.3 % (11.6-16.0); SUSPECT VIEW TRANSMISSION; White Blood Cell 11.8 10^3/uL (4.4-10.8)
[2016-10-01] MEDS: ACCU-CHEK COMFORT CURVE STRIP VI SCH ×6 (04:00→20:07)
[2016-10-01] MEDS: InsuLIN REG 1unit/0.01ml Soln (100units/ml) SC SCH ×6 (04:00→20:09)
[2016-10-01 04:14] LABS: Albumin 2.1 g/dL (3.4-5.0); BUN/Creatinine Ratio 40.5; Calcium 7.8 mg/dL (8.5-10.1); Magnesium 1.9 mg/dL (1.6-2.6); Potassium 4.1 mmol/L (3.5-5.1)
[2016-10-01 04:16] LABS: Bilirubin, Total 0.3 mg/dL (0.2-1.0); Total Protein 6.1 g/dL (6.4-8.2)
[2016-10-01] MEDS: methylPREDNISolone SOD SUCC 40 MG/ML VL IV SCH ×3 (05:48→21:44)
[2016-10-01] MEDS: PROPOFOL 100 ML IV SCH (08:47)
[2016-10-01] MEDS: ASPirin 81 mg TAB PO SCH (09:22)
[2016-10-01] MEDS: LEVOFLOXACIN 500MG 100 ML IV SCH (10:04)
[2016-10-01] MEDS: SOD CHL 0.45% 1,000 ML IV SCH ×2 (10:04→21:08)
[2016-10-01] MEDS: SODIUM CHLOR 0.9% PF (SALINE LOCK) 10ML VIAL IV SCH ×2 (10:04→22:01)
[2016-10-01] MEDS: MIDAZOLAM DRIP 100 mg/100mL NS 100 ML IV SCH ×3 (10:04→22:01)
[2016-10-01] MEDS: ENOXAPARIN SOD 40 MG/0.4 ML SYRINGE SC SCH (10:04)
[2016-10-01] MEDS: METOCLOPRAMIDE HCL 5MG/ml INJ 2ml VIAL IV SCH ×2 (11:42→17:26)
[2016-10-01 19:32] LABS: Basophils # (auto) 0 uL; Eosinophils # (auto) 0 uL; Hematocrit 29.6 % (36.0-46.0); Hemoglobin 9.8 g/dL (12.2-16.2); Lymphocytes # (auto) 0.9 uL; Lymphocytes % (auto) 6.5 % (10.0-50.0); Mean Corpuscular Hemoglobin 28.8 pg (28.0-32.0); Mean Corpuscular Hgb Conc. 33.1 g/dL (32.0-36.0); Mean Corpuscular Volume 86.9 fL (80.0-100.0); Mean Platelet Volume 9.6 fL (7.4-10.4); Monocytes # (auto) 1.5 uL; Monocytes % (auto) 10.9 % (0.0-12.0); Neutrophils # (auto) 11.7 uL; Neutrophils % (auto) 82.6 % (37.0-80.0); Platelet Count (auto) 274 10^3/uL (140-450); Red Cell Distribution Width 15.3 % (11.6-16.0); White Blood Cell 14.2 10^3/uL (4.4-10.8)
[2016-10-01 19:40] LABS: Albumin 2.1 g/dL (3.4-5.0); Alkaline Phosphatase 91 U/L (45-117); Anion Gap 12 (5-15); Aspartate Aminotransferase 7 U/L (15-37); Bilirubin, Direct < 0.1 mg/dL (0-0.2); Bilirubin, Total 0.2 mg/dL (0.2-1.0); Blood Urea Nitrogen 32 mg/dL (7-18); Calcium 8.2 mg/dL (8.5-10.1); Carbon Dioxide 23 mmol/L (21-32); Chloride 109 mmol/L (98-107); GFR African American 123 mL/min; GFR Non-African American 102 mL/min; Glucose 141 mg/dL (74-106); Magnesium 1.9 mg/dL (1.6-2.6); Potassium 3.8 mmol/L (3.5-5.1); Sodium 144 mmol/L (136-145)
[2016-10-01 19:54] LABS: INR 1.03 (0.9-1.15); Partial Thromboplastin Time 32.6 sec (22.64-33.71); Prothrombin Time 10.6 sec (9.37-12.3)
[2016-10-01] MEDS: NOREPINEPHRINE BITARTRATE 250 ML IV SCH (21:09)
[2016-10-01] MEDS: ATORVASTATIN 20 MG TAB PO SCH (21:44)
[2016-10-02] VITALS (90 sets, daily range): BP systolic 121–195; BP diastolic 72–101
[2016-10-02] MEDS: ACCU-CHEK COMFORT CURVE STRIP VI SCH ×6 (00:14→20:07)
[2016-10-02] MEDS: METOCLOPRAMIDE HCL 5MG/ml INJ 2ml VIAL IV SCH ×5 (00:14→23:31)
[2016-10-02] MEDS: InsuLIN REG 1unit/0.01ml Soln (100units/ml) SC SCH ×6 (00:15→20:00)
[2016-10-02] MEDS: fentaNYL Drip 2500mCg/250mlNS 250 ML IV SCH (04:11)
[2016-10-02 04:38] LABS: Basophils # (auto) 0 uL; Basophils % (auto) 0.2 % (0.0-2.0); Eosinophils # (auto) 0 uL; Hemoglobin 9.6 g/dL (12.2-16.2); Lymphocytes # (auto) 0.8 uL; Lymphocytes % (auto) 7.2 % (10.0-50.0); Mean Corpuscular Hgb Conc. 33.2 g/dL (32.0-36.0); Mean Corpuscular Volume 87.6 fL (80.0-100.0); Mean Platelet Volume 9.7 fL (7.4-10.4); Monocytes # (auto) 0.8 uL; Monocytes % (auto) 7.5 % (0.0-12.0); Neutrophils # (auto) 9.5 uL; Neutrophils % (auto) 85.1 % (37.0-80.0); Platelet Count (auto) 251 10^3/uL (140-450); Red Cell Distribution Width 15.2 % (11.6-16.0); White Blood Cell 11.2 10^3/uL (4.4-10.8)
[2016-10-02 04:49] LABS: Alkaline Phosphatase 91 U/L (45-117); Anion Gap 11 (5-15); Aspartate Aminotransferase 10 U/L (15-37); BUN/Creatinine Ratio 47.5; Bilirubin, Direct < 0.1 mg/dL (0-0.2); Bilirubin, Total 0.2 mg/dL (0.2-1.0); Blood Urea Nitrogen 28 mg/dL (7-18); Carbon Dioxide 25 mmol/L (21-32); Chloride 108 mmol/L (98-107); GFR African American 136 mL/min; GFR Non-African American 112 mL/min; Glucose 184 mg/dL (74-106); Sodium 144 mmol/L (136-145)
[2016-10-02 04:52] LABS: INR 1.01 (0.9-1.15); Prothrombin Time 10.4 sec (9.37-12.3)
[2016-10-02] MEDS: SOD CHL 0.45% 1,000 ML IV SCH ×3 (06:21→17:38)
[2016-10-02] MEDS: PROPOFOL 100 ML IV SCH (08:47)
[2016-10-02] MEDS: ASPirin 81 mg TAB PO SCH (10:00)
[2016-10-02] MEDS: LEVOFLOXACIN 500MG 100 ML IV SCH (10:02)
[2016-10-02] MEDS: SODIUM CHLOR 0.9% PF (SALINE LOCK) 10ML VIAL IV SCH ×2 (10:02→22:13)
[2016-10-02] MEDS: MIDAZOLAM DRIP 100 mg/100mL NS 100 ML IV SCH ×2 (10:02→10:10)
[2016-10-02] MEDS: ENOXAPARIN SOD 40 MG/0.4 ML SYRINGE SC SCH (10:06)
[2016-10-02] MEDS ORDERED: PANTOPRAZOLE SODIUM 40 MG/10 ML VIAL IV ONE (16:00)
[2016-10-02] MEDS: hydrALAZINE HCL 20 MG/ML VL IV PRN (16:08)
[2016-10-02 19:10] LABS: Basophils # (auto) 0.1 uL; Basophils % (auto) 0.9 % (0.0-2.0); Eosinophils # (auto) 0 uL; Eosinophils % (auto) 0.2 % (0.0-7.0); Hematocrit 31.2 % (36.0-46.0); Hemoglobin 10.3 g/dL (12.2-16.2); Lymphocytes # (auto) 1.3 uL; Mean Corpuscular Hemoglobin 28.8 pg (28.0-32.0); Mean Corpuscular Hgb Conc. 33.1 g/dL (32.0-36.0); Mean Corpuscular Volume 87.1 fL (80.0-100.0); Mean Platelet Volume 9.4 fL (7.4-10.4); Monocytes # (auto) 1.4 uL; Monocytes % (auto) 12.7 % (0.0-12.0); Neutrophils # (auto) 8.1 uL; Neutrophils % (auto) 74.2 % (37.0-80.0); Platelet Count (auto) 272 10^3/uL (140-450); Red Cell Distribution Width 15.1 % (11.6-16.0); White Blood Cell 10.9 10^3/uL (4.4-10.8)
[2016-10-02 19:18] LABS: INR 1.02 (0.9-1.15); Partial Thromboplastin Time 27.1 sec (22.64-33.71); Prothrombin Time 10.5 sec (9.37-12.3)
[2016-10-02 19:25] LABS: Albumin 1.9 g/dL (3.4-5.0); Anion Gap 10 (5-15); Aspartate Aminotransferase 10 U/L (15-37); Blood Urea Nitrogen 21 mg/dL (7-18); Calcium 7.5 mg/dL (8.5-10.1); Carbon Dioxide 24 mmol/L (21-32); Chloride 104 mmol/L (98-107); GFR African American 201 mL/min; GFR Non-African American 166 mL/min; Glucose 93 mg/dL (74-106); Magnesium 1.7 mg/dL (1.6-2.6); Potassium 3.1 mmol/L (3.5-5.1); Sodium 138 mmol/L (136-145)
[2016-10-02 19:26] LABS: Alkaline Phosphatase 82 U/L (45-117); Bilirubin, Total 0.2 mg/dL (0.2-1.0); Total Protein 5.8 g/dL (6.4-8.2)
[2016-10-02 19:30] LABS: Bilirubin, Direct < 0.1 mg/dL (0-0.2)
[2016-10-02] MEDS: MORPHINE SULF INJ 2 MG/ML SYRINGE 1ML IV PRN ×2 (19:36→23:39)
[2016-10-02] MEDS: NOREPINEPHRINE BITARTRATE 250 ML IV SCH (21:15)
[2016-10-02] MEDS: PROMETHAZINE HCL 25 MG/ML 1ML IV PRN (21:44)
[2016-10-02] MEDS: ATORVASTATIN 20 MG TAB PO SCH (23:31)
[2016-10-03] VITALS (34 sets, daily range): BP systolic 129–173; BP diastolic 65–106
[2016-10-03] MEDS: InsuLIN REG 1unit/0.01ml Soln (100units/ml) SC SCH ×6 (04:00→20:00)
[2016-10-03] MEDS: SOD CHL 0.45% 1,000 ML IV SCH ×2 (04:14→22:30)
[2016-10-03] MEDS: ACCU-CHEK COMFORT CURVE STRIP VI SCH ×6 (04:14→20:00)
[2016-10-03 04:49] LABS: Basophils # (auto) 0.1 uL; Basophils % (auto) 1.7 % (0.0-2.0); Eosinophils # (auto) 0 uL; Eosinophils % (auto) 0.2 % (0.0-7.0); Hematocrit 30.1 % (36.0-46.0); Lymphocytes # (auto) 1.3 uL; Lymphocytes % (auto) 15.8 % (10.0-50.0); Mean Corpuscular Hemoglobin 28.6 pg (28.0-32.0); Mean Corpuscular Hgb Conc. 33.2 g/dL (32.0-36.0); Mean Corpuscular Volume 86.3 fL (80.0-100.0); Mean Platelet Volume 10.1 fL (7.4-10.4); Monocytes # (auto) 1.1 uL; Monocytes % (auto) 12.9 % (0.0-12.0); Neutrophils # (auto) 5.8 uL; Neutrophils % (auto) 69.4 % (37.0-80.0); Platelet Count (auto) 261 10^3/uL (140-450); Red Cell Distribution Width 14.9 % (11.6-16.0); White Blood Cell 8.4 10^3/uL (4.4-10.8)
[2016-10-03 05:04] LABS: INR 1.02 (0.9-1.15); Partial Thromboplastin Time 30.1 sec (22.64-33.71); Prothrombin Time 10.5 sec (9.37-12.3)
[2016-10-03 05:13] LABS: Albumin 1.9 g/dL (3.4-5.0); Alkaline Phosphatase 86 U/L (45-117); Anion Gap 11 (5-15); Aspartate Aminotransferase 9 U/L (15-37); BUN/Creatinine Ratio 34.9; Bilirubin, Direct < 0.1 mg/dL (0-0.2); Bilirubin, Total 0.3 mg/dL (0.2-1.0); Blood Urea Nitrogen 15 mg/dL (7-18); Calcium 7.7 mg/dL (8.5-10.1); Carbon Dioxide 28 mmol/L (21-32); Chloride 106 mmol/L (98-107); GFR African American 195 mL/min; GFR Non-African American 161 mL/min; Glucose 117 mg/dL (74-106); Magnesium 1.7 mg/dL (1.6-2.6); Potassium 3.1 mmol/L (3.5-5.1); Sodium 145 mmol/L (136-145); Total Protein 5.8 g/dL (6.4-8.2)
[2016-10-03] MEDS: METOCLOPRAMIDE HCL 5MG/ml INJ 2ml VIAL IV SCH ×4 (05:44→23:29)
[2016-10-03] MEDS: MORPHINE SULF INJ 2 MG/ML SYRINGE 1ML IV PRN ×2 (07:13→18:14)
[2016-10-03] MEDS: PROPOFOL 100 ML IV SCH (08:47)
[2016-10-03] MEDS: ASPirin 81 mg TAB PO SCH (10:00)
[2016-10-03] MEDS: SODIUM CHLOR 0.9% PF (SALINE LOCK) 10ML VIAL IV SCH ×2 (10:04→23:28)
[2016-10-03] MEDS: MIDAZOLAM DRIP 100 mg/100mL NS 100 ML IV SCH (10:58)
[2016-10-03] MEDS: ENOXAPARIN SOD 40 MG/0.4 ML SYRINGE SC SCH (11:10)
[2016-10-03] MEDS: PANTOPRAZOLE SODIUM 40 MG/10 ML VIAL IV SCH (11:12)
[2016-10-03] MEDS: LEVOFLOXACIN 500MG 100 ML IV SCH (11:13)
[2016-10-03] MEDS: POTASSIUM CHL 20MEQ/100ML 100 ML IV SCH ×2 (12:32→15:54)
[2016-10-03] MEDS: hydrALAZINE HCL 20 MG/ML VL IV PRN (18:36)
[2016-10-03] MEDS: NOREPINEPHRINE BITARTRATE 250 ML IV SCH (21:03)
[2016-10-03] MEDS: ATORVASTATIN 20 MG TAB PO SCH (22:00)
[2016-10-04] MEDS: ACCU-CHEK COMFORT CURVE STRIP VI SCH ×6 (04:00→21:37)
[2016-10-04] MEDS: InsuLIN REG 1unit/0.01ml Soln (100units/ml) SC SCH ×6 (04:00→21:38)
[2016-10-04] MEDS: METOCLOPRAMIDE HCL 5MG/ml INJ 2ml VIAL IV SCH ×2 (06:41→12:09)
[2016-10-04 07:36] LABS: Basophils # (auto) 0 uL; Basophils % (auto) 0.1 % (0.0-2.0); Eosinophils # (auto) 0 uL; Eosinophils % (auto) 0.3 % (0.0-7.0); Hematocrit 38.3 % (36.0-46.0); Hemoglobin 12.9 g/dL (12.2-16.2); Lymphocytes # (auto) 1.4 uL; Lymphocytes % (auto) 13.2 % (10.0-50.0); Mean Corpuscular Hemoglobin 28.9 pg (28.0-32.0); Mean Corpuscular Hgb Conc. 33.8 g/dL (32.0-36.0); Mean Corpuscular Volume 85.8 fL (80.0-100.0); Mean Platelet Volume 9.4 fL (7.4-10.4); Monocytes # (auto) 1.2 uL; Monocytes % (auto) 11.2 % (0.0-12.0); Neutrophils # (auto) 7.9 uL; Neutrophils % (auto) 75.2 % (37.0-80.0); Platelet Count (auto) 346 10^3/uL (140-450); Red Cell Distribution Width 14.6 % (11.6-16.0); White Blood Cell 10.5 10^3/uL (4.4-10.8)
[2016-10-04 07:48] LABS: INR 1.06 (0.9-1.15); Prothrombin Time 10.9 sec (9.37-12.3)
[2016-10-04 07:54] LABS: Albumin 2.3 g/dL (3.4-5.0); BUN/Creatinine Ratio 23.3; Bilirubin, Total 0.4 mg/dL (0.2-1.0); Calcium 8.4 mg/dL (8.5-10.1); Magnesium 1.6 mg/dL (1.6-2.6); Potassium 3.1 mmol/L (3.5-5.1); Total Protein 6.8 g/dL (6.4-8.2)
[2016-10-04] MEDS: SOD CHL 0.45% 1,000 ML IV SCH (08:43)
[2016-10-04 09:00] VITALS: BP 127/79
[2016-10-04] MEDS: ASPirin 81 mg TAB PO SCH ×2 (10:00→10:54)
[2016-10-04] MEDS: SODIUM CHLOR 0.9% PF (SALINE LOCK) 10ML VIAL IV SCH ×2 (10:54→21:37)
[2016-10-04] MEDS: ENOXAPARIN SOD 40 MG/0.4 ML SYRINGE SC SCH (10:54)
[2016-10-04] MEDS: PANTOPRAZOLE SODIUM 40 MG/10 ML VIAL IV SCH (10:54)
[2016-10-04] MEDS: LEVOFLOXACIN 500MG 100 ML IV SCH (10:54)
[2016-10-04 13:43] VITALS: BP 125/75
[2016-10-04] MEDS ORDERED: FLUCONAZOLE 100 MG TAB PO ONE (16:30)
[2016-10-04] MEDS ORDERED: HYDROcodone-ACET 5/325MG TAB PO PRN (16:30)
[2016-10-04] MEDS ORDERED: DEXTROSE (50%) 50ML SYRG IV PRN (16:30)
[2016-10-04 17:20] VITALS: BP 130/79
[2016-10-04] MEDS: LISINOPRIL 20 MG TAB PO SCH (17:29)
[2016-10-04] MEDS: metFORMIN HYDROCHLORIDE 500 MG TAB PO SCH (17:30)
[2016-10-04] MEDS: diphenhdrAMINE HCL 50 MG/1 ML VL IV PRN ×2 (17:50→23:47)
[2016-10-04] MEDS: ATORVASTATIN 20 MG TAB PO SCH (21:37)
[2016-10-04] MEDS: MORPHINE SULF INJ 2 MG/ML SYRINGE 1ML IV PRN (22:05)
[2016-10-05] MEDS: MORPHINE SULF INJ 2 MG/ML SYRINGE 1ML IV PRN ×5 (02:44→19:02)
[2016-10-05 03:42] VITALS: BP 130/79
[2016-10-05 05:00] VITALS: BP 126/83
[2016-10-05] MEDS: metFORMIN HYDROCHLORIDE 500 MG TAB PO SCH ×2 (05:48→17:57)
[2016-10-05] MEDS: ACCU-CHEK COMFORT CURVE STRIP VI SCH ×4 (05:48→21:48)
[2016-10-05] MEDS: InsuLIN REG 1unit/0.01ml Soln (100units/ml) SC SCH ×4 (05:48→21:50)
[2016-10-05 07:56] VITALS: BP 150/88
[2016-10-05] MEDS: ENOXAPARIN SOD 40 MG/0.4 ML SYRINGE SC SCH (09:36)
[2016-10-05] MEDS: ASPirin 81 mg TAB PO SCH (09:38)
[2016-10-05] MEDS: PANTOPRAZOLE 40 MG TAB PO SCH (09:38)
[2016-10-05] MEDS: FLUCONAZOLE 100 MG TAB PO SCH (09:38)
[2016-10-05] MEDS: SODIUM CHLOR 0.9% PF (SALINE LOCK) 10ML VIAL IV SCH ×2 (09:39→21:43)
[2016-10-05] MEDS: LISINOPRIL 20 MG TAB PO SCH (09:39)
[2016-10-05] MEDS ORDERED: ENOXAPARIN SOD 40 MG/0.4 ML SYRINGE SC SCH (10:00)
[2016-10-05] MEDS ORDERED: POTASSIUM CHL 10 Meq TABLET PO ONE (10:15)
[2016-10-05] MEDS ORDERED: MAGNESIUM OXIDE 400 MG TAB PO ONE (10:15)
[2016-10-05 12:15] VITALS: BP 160/87
[2016-10-05 15:56] VITALS: BP 139/84
[2016-10-05] MEDS: MAGNESIUM OXIDE 400 MG TAB PO SCH (21:43)
[2016-10-05] MEDS: ATORVASTATIN 20 MG TAB PO SCH (21:43)
[2016-10-05 21:49] VITALS: BP 145/83
[2016-10-06] MEDS: MORPHINE SULF INJ 2 MG/ML SYRINGE 1ML IV PRN ×4 (00:25→17:14)
[2016-10-06] MEDS: hydrALAZINE HCL 20 MG/ML VL IV PRN (05:26)
[2016-10-06 05:27] VITALS: BP 162/88
[2016-10-06] MEDS: ACCU-CHEK COMFORT CURVE STRIP VI SCH ×2 (06:27→11:35)
[2016-10-06] MEDS: metFORMIN HYDROCHLORIDE 500 MG TAB PO SCH (06:35)
[2016-10-06] MEDS: InsuLIN REG 1unit/0.01ml Soln (100units/ml) SC SCH ×2 (06:36→11:36)
[2016-10-06 08:26] VITALS: BP 153/92
[2016-10-06] MEDS ORDERED: MAGN400T21 PO (09:08)
[2016-10-06] MEDS ORDERED: AML5T PO (09:08)
[2016-10-06] MEDS ORDERED: ASPI81CH43 PO (09:08)
[2016-10-06] MEDS ORDERED: PANT40T PO (09:08)
[2016-10-06] MEDS ORDERED: ATOR20TA50 PO (09:08)
[2016-10-06] MEDS ORDERED: FLUC100T34 PO (09:08)
[2016-10-06] MEDS: PANTOPRAZOLE 40 MG TAB PO SCH (09:09)
[2016-10-06] MEDS: MAGNESIUM OXIDE 400 MG TAB PO SCH (09:09)
[2016-10-06] MEDS: ASPirin 81 mg TAB PO SCH (09:09)
[2016-10-06] MEDS: ENOXAPARIN SOD 40 MG/0.4 ML SYRINGE SC SCH (09:09)
[2016-10-06] MEDS: FLUCONAZOLE 100 MG TAB PO SCH (09:10)
[2016-10-06] MEDS: LISINOPRIL 20 MG TAB PO SCH (09:10)
[2016-10-06] MEDS: SODIUM CHLOR 0.9% PF (SALINE LOCK) 10ML VIAL IV SCH (09:15)
[2016-10-06] MEDS ORDERED: amLODIPine BESYLATE 5 MG TAB PO SCH (10:00)
[2016-10-06 12:42] VITALS: BP 153/90
[2016-10-06 16:41] VITALS: BP 142/83
== END 2016-10-06 18:55 | DRG 45 ==
LOC: ER 05:23 → TELE 05:24 → TELE-WESTW 15:54 → ICU WEST 09-29 08:44 → TELE-CENTR 10-03 16:37 → CENTRAL 10-04 17:47
PROVIDERS: ADMIT Internal Medicine; ATTEND Internal Medicine
PROC: 02HV33Z Insertion of Infusion Device into Superior Vena Cava, Percutaneous Approach (ICD-10-PCS; principal; 2016-09-30)
PROC: 5A1945Z Respiratory Ventilation, 24-96 Consecutive Hours (ICD-10-PCS; 2016-09-30)
PROC: 0BH17EZ Insertion of Endotracheal Airway into Trachea, Via Natural or Artificial Opening (ICD-10-PCS; 2016-09-30)
DX: I63.9 Cerebral infarction, unspecified (principal); J96.00 Acute respiratory failure, unspecified whether with hypoxia or hypercapnia; J69.0 Pneumonitis due to inhalation of food and vomit; E11.65 Type 2 diabetes mellitus with hyperglycemia; I12.9 Hypertensive chronic kidney disease with stage 1 through stage 4 chronic kidney disease, or unspecified chronic kidney disease; N39.0 Urinary tract infection, site not specified; Z87.442 Personal history of urinary calculi; N18.9 Chronic kidney disease, unspecified; K21.9 Gastro-esophageal reflux disease without esophagitis; E44.0 Moderate protein-calorie malnutrition; E11.22 Type 2 diabetes mellitus with diabetic chronic kidney disease; E87.6 Hypokalemia; F17.210 Nicotine dependence, cigarettes, uncomplicated; I70.0 Atherosclerosis of aorta; K92.2 Gastrointestinal hemorrhage, unspecified; R47.02 Dysphasia; Z80.9 Family history of malignant neoplasm, unspecified; Z88.0 Allergy status to penicillin; G81.94 Hemiplegia, unspecified affecting left nondominant side; Z23 Encounter for immunization
CPT/HCPCS: 36415; 36569; 36600; 70450; 70496; 70498; 70551; 71010; 71020; 74176; 80048; 80053; 80061; 80076; 80320; 81001; 82550; 82607; 82746; 82805; 82962; 83036; 83735; 84443; 84484; 85025; 85610; 85652; 85730; 87070; 87081; 87086; 87205; 93005; 93306; 93886; 94002; 94003; 94761; 96361; 96365; 97001; 97110; 97116; 97530; C9113; G0434; J0696; J1815; J1956; J2704; J3010; J3480; J3490; J7042